=== PATIENT | female | born 1975 | race Caucasian/White ===

== ENCOUNTER 2016-10-01 23:18 | Emergency (ER) | payer OTHER | END 2016-10-02 01:00 | disposition left against medical advice (07) | LOC: ER1 23:18 | DX: Z53.21 Procedure and treatment not carried out due to patient leaving prior to being seen by health care provider (principal) ==

== ENCOUNTER → 2016-11-29 | Outpatient (CLI) | payer OTHER | LOC: HEART 5 11-25 08:00 | DX: R06.02 Shortness of breath (principal); I73.9 Peripheral vascular disease, unspecified; R06.00 Dyspnea, unspecified; R94.39 Abnormal result of other cardiovascular function study | CPT/HCPCS: 93306 ==

== ENCOUNTER → 2020-11-18 | Outpatient (CLI) | payer OTHER | LOC: KOH-I 10-14 08:30 | DX: R41.3 Other amnesia (principal) | CPT/HCPCS: 70450 ==